=== PATIENT | male | born 1990 | race Caucasian/White ===

== ENCOUNTER 2021-02-06 22:43 | Emergency (ER) | payer OTHER ==
[2021-02-06 23:01] VITALS: BP 138/77; PULSE 80; TEMP 99.6; BMI 33.2
== END 2021-02-07 00:16 | disposition home or self-care (01) ==
LOC: MERGE 22:43 → FER 22:43
DX: S83.421A Sprain of lateral collateral ligament of right knee, initial encounter (principal)
CPT/HCPCS: 73560-TC-RT-FY; 99283-25

== ENCOUNTER 2021-05-03 09:42 | Day surgery (SDC) | payer OTHER ==
[2021-04-09 12:16] VITALS: BMI 34.2
[2021-05-03] MEDS ORDERED: BUPIVACAINE HCL/PF 0.5% (5 MG/ML) 30 ML VIAL IJ ONE (10:37)
[2021-05-03] MEDS ORDERED: MIDAZOLAM HCL 2 MG/2 ML SINGLE DOSE VIAL ONE (10:37)
[2021-05-03] MEDS ORDERED: SODIUM CHLORIDE 0.9% P/F 10 ML VIAL IJ ONE (10:37)
[2021-05-03] MEDS ORDERED: BUPIVACAINE LIPOSOME/PF (EXPAREL) 266 MG/20 ML VIAL ONE (10:37)
[2021-05-03] MEDS ORDERED: SEVOFLURANE 250 ML BTL ONE (12:27)
[2021-05-03] MEDS ORDERED: PROMETHAZINE HCL 25 MG/1 ML VIAL IVPUSH PRN (14:34)
[2021-05-03] MEDS ORDERED: ONDANSETRON 4 MG/2 ML VIAL IVPUSH PRN (14:34)
[2021-05-03] MEDS ORDERED: oxyCODONE HCL 5 MG TABLET PO PRN ×2 (14:34→17:00)
[2021-05-03 15:04] VITALS: TEMP 97.5
[2021-05-03] MEDS ORDERED: ONDANSETRON 4 MG/2 ML VIAL ONE (15:18)
[2021-05-03 18:20] VITALS: BP 118/72; PULSE 71
== END 2021-05-03 18:21 | disposition home or self-care (01) ==
LOC: FASU 09:42
PROVIDERS: ATTEND Orthopaedic Surgery Sports Medicine
PROC: 0SBC4ZZ Excision of Right Knee Joint, Percutaneous Endoscopic Approach (ICD-10-PCS; 2021-05-03)
PROC: 0MRN47Z Replacement of Right Knee Bursa and Ligament with Autologous Tissue Substitute, Percutaneous Endoscopic Approach (ICD-10-PCS; principal; 2021-05-03 12:14)
DX: S83.511A Sprain of anterior cruciate ligament of right knee, initial encounter (principal); S83.281A Other tear of lateral meniscus, current injury, right knee, initial encounter; M65.861 Other synovitis and tenosynovitis, right lower leg; X58.XXXA Exposure to other specified factors, initial encounter; Y93.9 Activity, unspecified; Y92.9 Unspecified place or not applicable
CPT/HCPCS: 29881; 29888; C1713; 94760

== ENCOUNTER 2021-07-17 10:38 | Emergency (ER) | payer OTHER ==
[2021-07-17 11:20] VITALS: BMI 34.2
[2021-07-17] MEDS ORDERED: ACETAMINOPHEN 325 MG TABLET (FP) PO ONE (11:45)
[2021-07-17] MEDS ORDERED: IBUPROFEN 600 MG TABLET (FP) PO ONE ×2 (11:59→12:02)
[2021-07-17 14:32] VITALS: BP 116/68; PULSE 100; TEMP 100
== END 2021-07-17 14:32 | disposition home or self-care (01) ==
LOC: JER 10:38
DX: U07.1 COVID-19 (principal); R50.9 Fever, unspecified; R05.1 Acute cough; J02.9 Acute pharyngitis, unspecified
CPT/HCPCS: 71046-TC-FY; 87651; 87804; 99283-25; C9803; U0003; U0005

== ENCOUNTER 2021-08-05 05:54 | Emergency (ER) | payer OTHER ==
[2021-08-05 06:11] VITALS: BP 122/84; PULSE 88; TEMP 98; BMI 34.0
[2021-08-05] MEDS ORDERED: SODIUM CHLORIDE 0.9% 500 ML INFUS.BAG IV ONE (07:27)
[2021-08-05] MEDS ORDERED: FAMOTIDINE 20 MG/50 ML IVPB 20 MG/50 ML MG IVPB ONE ×2 (07:27→07:53)
[2021-08-05] MEDS ORDERED: MAG HYDROX/AL HYDROX/SIMETH 30 ML UNIT-DOSE CUP PO ONE (07:30)
[2021-08-05] MEDS ORDERED: MAG HYDROX/AL HYDROX/SIMETH 30 ML UNIT-DOSE CUP ONE (07:53)
[2021-08-05] MEDS ORDERED: ONDANSETRON 4 MG/2 ML VIAL IVPUSH ONE (07:57)
[2021-08-05] MEDS ORDERED: ONDANSETRON 4 MG/2 ML VIAL ONE (08:15)
== END 2021-08-05 09:13 | disposition home or self-care (01) ==
LOC: JER 05:54
PROC: 3E033NZ Introduction of Analgesics, Hypnotics, Sedatives into Peripheral Vein, Percutaneous Approach (ICD-10-PCS; principal; 2021-08-05)
PROC: 3E033GC Introduction of Other Therapeutic Substance into Peripheral Vein, Percutaneous Approach (ICD-10-PCS; 2021-08-05)
DX: R11.2 Nausea with vomiting, unspecified (principal); R19.7 Diarrhea, unspecified
CPT/HCPCS: 87804; 99284-25

== ENCOUNTER 2022-08-29 09:31 | Emergency (ER) | payer OTHER ==
[2022-08-29 09:40] VITALS: BP 128/69; PULSE 79; RESP 18; TEMP 98.2; BMI 34.0
[2022-08-29] MEDS ORDERED: KETOROLAC TROMETHAMINE 15 MG/ML VIAL IM ONE (10:04)
[2022-08-29] MEDS ORDERED: KETOROLAC TROMETHAMINE 15 MG/ML VIAL ONE (10:04)
[2022-08-29] MEDS ORDERED: LIDOCAINE 5% TOPICAL PATCH ONE (10:04)
[2022-08-29] MEDS ORDERED: LIDOCAINE 5% TOPICAL PATCH TP ONE (10:04)
[2022-08-29] MEDS ORDERED: LIDOCAINE PATCH REMOVAL MC SCH (22:00)
== END 2022-08-29 10:13 | disposition home or self-care (01) ==
LOC: JERFT 09:31
PROC: 3E0233Z Introduction of Anti-inflammatory into Muscle, Percutaneous Approach (ICD-10-PCS; principal; 2022-08-29)
DX: M54.42 Lumbago with sciatica, left side (principal)
CPT/HCPCS: 99284-25

== ENCOUNTER 2023-03-21 08:08 | Emergency (ER) | payer OTHER ==
[2023-03-21 08:18] VITALS: BP 119/79; PULSE 71; RESP 16; TEMP 98.3; BMI 32.5
[2023-03-21] MEDS ORDERED: ACETAMINOPHEN 500 MG TABLET (FP) PO ONE (08:45)
[2023-03-21] MEDS ORDERED: ACETAMINOPHEN 325 MG TABLET (FP) ONE (08:58)
[2023-03-21] MEDS ORDERED: KETOROLAC TROMETHAMINE 30 MG/1 ML VIAL IM ONE (10:04)
[2023-03-21] MEDS ORDERED: KETOROLAC TROMETHAMINE 30 MG/1 ML VIAL ONE (10:15)
== END 2023-03-21 10:37 | disposition home or self-care (01) ==
LOC: JER 08:08
PROC: 3E0233Z Introduction of Anti-inflammatory into Muscle, Percutaneous Approach (ICD-10-PCS; principal; 2023-03-21)
DX: S29.9XXA Unspecified injury of thorax, initial encounter (principal); R07.89 Other chest pain; R00.2 Palpitations; M94.0 Chondrocostal junction syndrome [Tietze]; W51.XXXA Accidental striking against or bumped into by another person, initial encounter; Y93.61 Activity, american tackle football
CPT/HCPCS: 71046-TC-FY; 71101-TC-LT-FY; 93005; 93010; 99284-25